=== PATIENT | male | born 1995 | race Two or more races ===

== ENCOUNTER 2021-06-17 08:41 | Emergency (ER) | payer OTHER ==
[~2021-06-17] VITALS: Ht 172.7 cm; Wt 74.5 kg
[2021-06-17 08:53] VITALS: BP 117/73
[2021-06-17] MEDS ORDERED: HYDROCODONE/ACETAMINOPHEN 5-325 MG TABLET PO ONE (09:00)
[2021-06-17] MEDS ORDERED: KETOROLAC TROMETHAMINE 60 MG/2 ML VIAL IM ONE (09:00)
== END 2021-06-17 11:18 | disposition home or self-care (01) ==
LOC: EMS 08:48
DX: S82.832A Other fracture of upper and lower end of left fibula, initial encounter for closed fracture (principal); S62.351A Nondisplaced fracture of shaft of second metacarpal bone, left hand, initial encounter for closed fracture; Y04.0XXA Assault by unarmed brawl or fight, initial encounter; Y93.89 Activity, other specified; Y92.89 Other specified places as the place of occurrence of the external cause; Y99.8 Other external cause status
CPT/HCPCS: 29125; 29515; 73130; 73610; 96372; 99284; J1885